=== PATIENT | female | born 1995 | race Caucasian/White ===

== ENCOUNTER 2017-05-26 18:01 | Emergency (ER) | payer OTHER ==
[2017-05-26 19:06] VITALS: BP 103/64
--- NOTE | 2017-05-26 19:06 | UC ---
Abdominal Pain Female HPI - HPI Summary HPI Summary: Patient presents to the with CC of diffuse abdominal pain which began in the left upper quadrant and has radiated to the RLQ. Denies fevers, sweats or chills. Abdominal pain began 4 days and she states "worst of life." She has taken 4 tests with negative results. She appears to be anxious on exam. Denies urinary symptoms including urgency, frequency, burning upon urination. Dark colored, cloudy urine. Denies flank pain. Denies abdominal surgeries. She denies any diet changes or lifestyle changes. Denies N/V/C/D. - History of Current Complaint Chief Complaint: UCAbdominalPain Stated Complaint: ABD PAIN Time Seen by Provider: 05/26/17 18:35 Hx Obtained From: Patient Hx Last Menstrual Period: 4 days late ?: No Onset/Duration: Sudden Onset Timing: Constant Severity Initially: Moderate Severity Currently: Moderate Pain Intensity: 8 Pain Scale Used: 0-10 Numeric Location: Discrete At: LUQ Radiates: Yes Radiates to: RLQ Character: Cramping Aggravating Factor(s): Nothing Alleviating Factor(s): Nothing Associated Signs and Symptoms: Positive: Negative - Risk Factors Ectopic Risk Factor: Negative Ovarian Torsion Risk Factor: Negative Allergies/Adverse Reactions: Allergies Allergy/AdvReac Type Severity Reaction Status Date / Time No Known Allergies Allergy Verified 05/26/17 18:05 Home Medications: Home Medications NK [No Home Medications Reported] 05/26/17 [History Confirmed 05/26/17] PMH/Surg Hx/FS Hx/Imm Hx Previously Healthy: Yes - Surgical History Surgical History: None - Social History Occupation: Employed Part-time Lives: With Family Alcohol Use: None Substance Use Type: None Smoking Status (MU): Never Smoked Tobacco Have You Smoked in the Last Year: No Review of Systems Constitutional: Negative Skin: Negative ENT: Negative Respiratory: Negative Cardiovascular: Negative Gastrointestinal: Abdominal Pain Motor: Negative Neurovascular: Negative Musculoskeletal: Negative Neurological: Negative Psychological: Negative Is Patient Immunocompromised?: No All Other Systems Reviewed And Are Negative: Yes Physical Exam Triage Information Reviewed: Yes Appearance: Well-Appearing, Well-Nourished Vital Signs: Initial Vital Signs Temp 98.7 F 05/26/17 18:06 Pulse 71 05/26/17 18:06 Resp 16 05/26/17 18:06 BP 110/58 05/26/17 18:06 Pulse Ox 100 05/26/17 18:06 Vital Signs Reviewed: Yes Eye Exam: Normal Eyes: Positive: Conjunctiva Clear Neck exam: Normal Neck: Positive: Supple, No Lymphadenopathy Respiratory Exam: Normal Respiratory: Positive: Chest non-tender, Lungs clear, Normal breath sounds, No respiratory distress Cardiovascular Exam: Normal Cardiovascular: Positive: RRR Abdomen Description: Positive: No Organomegaly, Soft, McBurney's Point Tenderness, Other: - tenderness of the LUQ. Negative: CVA Tenderness (R), CVA Tenderness (L), Distended Bowel Sounds: Positive: Present Musculoskeletal Exam: Normal Musculoskeletal: Positive: Strength Intact Neurological Exam: Normal Neurological: Positive: Alert Psychological Exam: Normal Psychological: Positive: Normal Response To Family Skin Exam: Normal Abd Pain Female Course/Dx - Course Course Of Treatment: Patient is encouraged to go directly to the ED for further evaluation of diffuse abdominal pain. UA and preg not evaluated. - Differential Dx/Diagnosis Differential Diagnosis: , Urinary Tract Infection Provider Diagnoses: abdominal pain Discharge - Discharge Plan Condition: Stable Disposition: HOME Patient Education Materials: Abdominal Pain (ED) Additional Instructions: I advise you go directly to the emergency room for further evaluation.
== END 2017-05-26 19:07 | disposition home or self-care (01) ==
LOC: UCCORT 18:01
DX: R10.9 Unspecified abdominal pain (principal)
CPT/HCPCS: 99202; G0463